=== PATIENT | male | born 1980 | race Caucasian/White ===

== ENCOUNTER → 2021-09-27 15:33 | Outpatient (CLI) | payer BC, SELFPAY | PROVIDERS: PCP Physician Assistant Medical; Visit Provider Physician Assistant Medical | DX: R10.9 Unspecified abdominal pain (principal); R30.0 Dysuria; R82.90 Unspecified abnormal findings in urine | CPT/HCPCS: 87086 ==

== ENCOUNTER → 2021-09-28 08:11 | Outpatient (CLI) | payer BC, SELFPAY ==
[2021-09-28 18:59] LABS: Add Manual Diff / Slide Review NO; Basophils Absolute Auto 0 /uL (0-100); Basophils Percent Auto 0.5 % (0-2); Eosinophils Absolute Auto 200 /uL (0-450); Eosinophils Percent Auto 3.5 % (2-4); Hematocrit 44.2 % (41-53); Hemoglobin 15.4 g/dL (13.5-17.5); Lymphocytes Absolute Auto 1000 /uL (1100-4500); Lymphocytes Percent Auto 15.8 % (25-40); Mean Corpuscular HGB Conc 34.9 % (30-36); Mean Corpuscular Hemoglobin 30.6 PG (26-34); Mean Corpuscular Volume 87.7 fL (80-100); Monocytes Absolute Auto 500 /uL (0-900); Monocytes Percent Auto 8.3 % (3-14); Neutrophils Absolute Auto 4600 /uL (1500-7000); Neutrophils Percent Auto 71.9 % (50-75); Platelet Count 181 X10^3/uL (150-400); Red Blood Cell Count 5.04 X10^6/uL (4.5-5.9); Red Cell Distribution Width 13.2 % (11.6-14.8); White Blood Cell Count 6.4 X10^3/uL (4.5-11.0)
[2021-09-28 19:12] LABS: Alanine Aminotransferase 24 IU/L (<50); Albumin 4.5 g/dL (3.5-5.0); Albumin Globulin Ratio 1.5 (1.0-2.8); Alkaline Phosphatase 59 U/L (38-126); Aspartate Aminotransferase 33 IU/L (17-59); BUN Creatinine Ratio 15.7 (6-22); Bilirubin Total 0.6 mg/dL (0.2-1.3); Blood Urea Nitrogen 16 mg/dL (9-20); Calcium 9.5 mg/dL (8.4-10.2); Carbon Dioxide 25 mmol/L (22-32); Chloride 103 mmol/L (98-107); Estimated Glomerular Filt Rate > 60 mL/min (>60); Glucose 118 mg/dL (70-100); HEMOLYSIS < 15 (0-50); Potassium 4.3 mmol/L (3.4-5.1); Sodium 140 mmol/L (137-145); Total Protein 7.5 g/dL (6.3-8.2)
== END ==
PROVIDERS: PCP Physician Assistant Medical; Visit Provider Physician Assistant Medical
DX: R10.9 Unspecified abdominal pain (principal); R30.0 Dysuria; R82.90 Unspecified abnormal findings in urine
CPT/HCPCS: 80053; 85025

== ENCOUNTER → 2021-10-03 08:49 | Outpatient (CLI) | payer BC, SELFPAY ==
[2021-10-03 20:00] LABS: Appearance Urine UA CLEAR; Bilirubin Urine UA NEGATIVE (NEGATIVE); Color Urine UA YELLOW; Glucose Urine UA NEGATIVE (Negative); Ketones Urine UA NEGATIVE (NEGATIVE); Leukocyte Esterase Urine UA NEGATIVE (NEGATIVE); Nitrite Urine UA NEGATIVE (Negative); Occult Blood Urine UA NEGATIVE (Negative); Protein Urine UA NEGATIVE (Negative); Specific Gravity Urine UA 1.015 (1.000-1.035); Urobilinogen Urine UA 0.2 E.U./dL (0.2)
[2021-10-03 20:12] LABS: Bacteria Urine None Seen; Culture Indicated Urine Cult Not Indicated; RBC Urine None Seen (0-5/HPF); Squamous Epithelial Cell Urine 0-1 /HPF (0-5/HPF); WBC Urine None Seen (0-5/HPF)
== END ==
PROVIDERS: PCP Physician Assistant Medical; Visit Provider Physician Assistant Medical
DX: R82.90 Unspecified abnormal findings in urine (principal)
CPT/HCPCS: 81001

== ENCOUNTER → 2023-01-28 09:56 | Outpatient (CLI) | payer BC, SELFPAY ==
[2023-01-28 19:04] LABS: Alanine Aminotransferase 31 IU/L (<50); Albumin 4.5 g/dL (3.5-5.0); Albumin Globulin Ratio 1.5 (1.0-2.8); Alkaline Phosphatase 63 U/L (38-126); Aspartate Aminotransferase 35 IU/L (17-59); BUN Creatinine Ratio 16.5 (6-22); Bilirubin Total 0.8 mg/dL (0.2-1.3); Blood Urea Nitrogen 17 mg/dL (9-20); Calcium 9.7 mg/dL (8.4-10.2); Carbon Dioxide 29 mmol/L (22-32); Chloride 101 mmol/L (98-107); Cholesterol 204 mg/dL (140-199); Estimated Glomerular Filt Rate > 60 mL/min (>60); Globulin 3.1 g/dL (1.7-4.1); Glucose 89 mg/dL (70-100); HDL Cholesterol 53 mg/dL (40-60); HEMOLYSIS < 15 (0-50); LDL Cholesterol Calculated 125 mg/dL (<100); Potassium 4.4 mmol/L (3.4-5.1); Sodium 137 mmol/L (137-145); Total Protein 7.6 g/dL (6.3-8.2); Triglycerides 130 mg/dL (35-150)
[2023-01-28 19:05] LABS: Add Manual Diff / Slide Review NO; Basophils Absolute Auto 0 /uL (0-100); Basophils Percent Auto 0.7 % (0-2); Eosinophils Absolute Auto 100 /uL (0-450); Eosinophils Percent Auto 2.9 % (2-4); Hematocrit 43.7 % (41-53); Hemoglobin 15.4 g/dL (13.5-17.5); Lymphocytes Absolute Auto 1500 /uL (1100-4500); Lymphocytes Percent Auto 27.8 % (25-40); Mean Corpuscular HGB Conc 35.2 % (30-36); Mean Corpuscular Hemoglobin 30.9 PG (26-34); Mean Corpuscular Volume 87.8 fL (80-100); Monocytes Absolute Auto 600 /uL (0-900); Monocytes Percent Auto 10.5 % (3-14); Neutrophils Absolute Auto 3000 /uL (1500-7000); Neutrophils Percent Auto 58.1 % (50-75); Platelet Count 197 X10^3/uL (150-400); Red Blood Cell Count 4.98 X10^6/uL (4.5-5.9); Red Cell Distribution Width 12.5 % (11.6-14.8); White Blood Cell Count 5.2 X10^3/uL (4.5-11.0)
[2023-01-28 19:34] LABS: Prostate Specific Antigen Scrn 0.467 ng/mL (0.1-4.0)
== END ==
PROVIDERS: PCP Family Medicine; Visit Provider Family Medicine
DX: Z13.1 Encounter for screening for diabetes mellitus (principal); Z13.220 Encounter for screening for lipoid disorders; Z12.5 Encounter for screening for malignant neoplasm of prostate; Z13.6 Encounter for screening for cardiovascular disorders
CPT/HCPCS: 80053; 80061; 85025; G0103

== ENCOUNTER 2023-10-14 13:50 | Emergency (ER) | payer BC, SELFPAY ==
[2023-10-14 14:04] VITALS: BP 158/89; PULSE 66; RESP 17; TEMP 36.6; O2SAT 95; BMI 27.8
[2023-10-14 16:13] VITALS: BP 158/92; PULSE 65; RESP 20; O2SAT 98
--- NOTE | 2023-10-14 16:24 | ED_ITS ---
HPI - Extremity Injury (Upper) <Geeta Mccray PA-C - Last Filed: 10/14/23 16:33> General Chief Complaint: Extremity Injury, Upper Stated Complaint: Shoulder pain, numbness Time Seen by Provider: 10/14/23 15:00 Source: patient Mode of arrival: Ambulatory History of Present Illness HPI narrative: 43-year-old male presents to the ED with 5 days of right-sided shoulder pain. Patient states his pain started after he did some heavy lifting at home. Patient endorses some numbness when he lets his right arm hang down, however it resolves when he puts his arm back into the sling. Patient endorses front sided shoulder pain. Patient states that his range of motion is limited due to the pain. No tingling, weakness. Patient was seen by his primary care doctor at [facility], x-rays were obtained which were negative. Patient was provided a sling by his doctor as well as a muscle relaxant, Tylenol, ibuprofen. Related Data Previous Rx's Medication Instructions Recorded methocarbamol 750 mg tablet 1,500 mg (2 x 750 mg) PO TID for 10/13/23 muscle spasm #30 tabs Allergies Allergy/AdvReac Type Severity Reaction Status Date / Time codeine [CODEINE] Allergy Unknown VOMITING Verified 10/14/23 14:07 Review of Systems <Geeta Mccray PA-C - Last Filed: 10/14/23 16:33> Constitutional Constitutional: Denies chills, Denies fatigue, Denies fever(s), Denies frequent falls, Denies lethargy and Denies weakness Eyes Eyes: Denies change in vision, Denies eye discharge, Denies irritation and Denies loss of vision ENT Ears, Nose, Mouth, and Throat: Denies change in voice, Denies dizziness, Denies neck pain, Denies sore throat and Denies throat swelling Cardiovascular Cardiovascular: Denies chest pain, Denies irregular heart rhythm, Denies lightheadedness, Denies palpitations, Denies dyspnea, Denies dyspnea on exertion and Denies orthopnea Respiratory Respiratory: Denies cough, Denies dyspnea, Denies dyspnea on exertion and Denies wheezing Gastrointestinal Gastrointestinal: Denies abdominal pain, Denies change in bowel habits, Denies diarrhea, Denies nausea and Denies vomiting Musculoskeletal Musculoskeletal: Denies neck pain and Denies numbness Comments: right shoulder pain Integumentary/Breasts Skin/Breast: Denies pruritus, Denies erythema, Denies rash and Denies wounds Neurologic Neurologic: Denies behavioral changes, Denies confusion, Denies dizziness, Denies frequent falls, Denies loss of vision, Denies numbness and Denies weakness Psychiatric Psychiatric: Denies anxiety, Denies behavioral changes, Denies confusion, Denies depression, Denies homicidal ideation and Denies suicidal ideation Endocrine Endocrine: Denies fatigue, Denies flushing and Denies palpitations Hematologic/Lymphatic Hematologic/Lymphatic: Denies easy bruising Allergic/Immunologic Allergic/Immunologic: Denies urticaria, Denies throat swelling and Denies wheezing Patient History <Geeta Mccray PA-C - Last Filed: 10/14/23 16:33> Social History Smoking Status: Never smoker Smoking Status: Never smoker alcohol intake frequency: other Substance Use Type: does not use Exam <Geeta Mccray PA-C - Last Filed: 10/14/23 16:33> Narrative Exam Narrative: Const General:?cooperative, healthy appearing and comfortable [facility] Head:?normal to inspection Ears:?hearing grossly normal bilaterally Nose:?external nose normal Face and sinus:?normal facial exam and sinuses nontender Mouth:?oral mucosae normal Throat:?posterior oropharynx normal Eyes General:?appearance normal, both eyes and all related structures Neck Neck:?normal visual inspection and no lymphadenopathy noted Resp Effort & Inspection:?normal respiratory effort Auscultation:?clear to auscultation bilaterally Cardio Rate:?regular rate Rhythm:?regular rhythm Musculoskeletal There is no tenderness to palpation of the right shoulder. Patient does exhibit limited range of motion due to the pain. Neurovascularly intact. Neuro General:?patient alert, patient awake and patient oriented x3 Initial Vital Signs Initial Vital Signs: Vital Signs Temperature 97.8 F 10/14/23 14:04 Pulse Rate 66 10/14/23 14:04 Respiratory Rate 17 10/14/23 14:04 Blood Pressure 158/89 H 10/14/23 14:04 Pulse Oximetry 95 10/14/23 14:04 Oxygen Delivery Method Room Air 10/14/23 14:04 <Leela Mac DO - Last Filed: 10/15/23 08:50> Initial Vital Signs Initial Vital Signs: Vital Signs Temperature 97.8 F 10/14/23 14:04 Pulse Rate 66 10/14/23 14:04 Respiratory Rate 17 10/14/23 14:04 Blood Pressure 158/89 H 10/14/23 14:04 Pulse Oximetry 95 10/14/23 14:04 Oxygen Delivery Method Room Air 10/14/23 14:04 Course <Geeta Mccray PA-C - Last Filed: 10/14/23 16:33> Vital Signs Vital signs: Vital Signs - 8 hr 10/14/23 14:04 10/14/23 16:13 Temperature 97.8 F Pulse Rate 66 65 Respiratory Rate 17 20 Blood Pressure 158/89 H 158/92 H Pulse Oximetry 95 98 Oxygen Delivery Method Room Air Room Air <Leela Mac DO - Last Filed: 10/15/23 08:50> Vital Signs Vital signs: Vital Signs - 8 hr 10/14/23 14:04 10/14/23 16:13 Temperature 97.8 F Pulse Rate 66 65 Respiratory Rate 17 20 Blood Pressure 158/89 H 158/92 H Pulse Oximetry 95 98 Oxygen Delivery Method Room Air Room Air MDM - Extremity Injury (Upper) <Geeta Mccray PA-C - Last Filed: 10/14/23 16:33> MDM Narrative Medical decision making narrative: 43-year-old male presents to the ED with 5 days of right-sided shoulder pain. It is reassuring that patient's x-ray shows no acute fractures or dislocations. Patient's presentation is consistent with a musculoskeletal sprain/strain of the right shoulder. Recommend patient continue to wear the sling and take ibuprofen, Tylenol. Recommend continuing the muscle relaxant as needed. May try lidocaine patches for relief. Recommend follow-up with physical therapy as scheduled. ED return precautions discussed with patient. Patient verbalized understanding. Medical records reviewed: Yes Discharge Plan Departure Patient Disposition: Home Clinical Impression: Right shoulder pain Instructions: DI for Shoulder Sprain Activity Restrictions/Additional Instructions: You were evaluated in the ED today for right-sided shoulder pain. It is reassuring that the x-rays from your primary care doctor did not show any fractures or dislocations. Your symptoms are most consistent with a musculo skeletal sprain/strain of the shoulder. Please continue to wear the sling. You may take 800 mg of ibuprofen every 8 hours with food. You can also add on 1000 mg of Tylenol every 8 hours. You may apply lidocaine patches for relief. Please follow-up with your physical therapist as soon as possible. Return to the ED if you have worsening symptoms, numbness, tingling, weakness. Prescriptions: No Action methocarbamol 750 mg tablet 1,500 mg PO TID Qty: 30 2RF Rx Instructions: (ok to take less and to skip doses) Referrals: Dioni Corona MD [Primary Care Provider] - Stand Alone Forms: Patient Portal/API ED Sign-out <Leela Mac DO - Last Filed: 10/15/23 08:50> Cosign ED Attending [place] Attestation: I was available for consultation.
== END 2023-10-14 16:32 | disposition home or self-care (01) ==
PROVIDERS: Emergency Provider Student in an Organized Health Care Education/Training Program; PCP Family Medicine
DX: M25.511 Pain in right shoulder (principal)
CPT/HCPCS: 99281; 99282